=== PATIENT | male | born 1995 | race Caucasian/White ===

== ENCOUNTER 2016-10-01 16:04 | Inpatient (IN) | payer OTHER ==
[~2016-10-01] VITALS: Ht 195.6 cm; Wt 115.2 kg
[~2016-10-01 16:04] MED LIST: METFORMIN ER500 M1 PO; ZOLOFT100 MG PO
[2016-10-01 17:34] LABS: BASOPHIL % 0.1 % (0-2); PLATELET COUNT 363 x10^3mcL (130-400); RED CELL DISTRIBUTION WIDTH 14.2 % (11.5-14.5)
[2016-10-01 18:51] LABS: ALKALINE PHOSPHATASE 96 U/L (46-116); ALT/SGPT 215 U/L (16-63); AST/SGOT 109 U/L (15-37); BILIRUBIN TOTAL 0.6 mg/dL (0.20-1.00); CALCIUM 9.1 mg/dL (8.5-10.1); CARBON DIOXIDE 15.6 mmol/L (21-32); CHLORIDE SERUM 100 mmol/L (98-107); CREATININE SERUM 0.8 mg/dL (0.7-1.3); GFR1 > 60 mL/min; GLUCOSE SERUM 310 mg/dL (74-106); LIPASE 911 IU/L (73-393); MAGNESIUM 1.7 mg/dL (1.8-2.4); POTASSIUM SERUM 4.3 mmol/L (3.5-5.1); SODIUM SERUM 133 mmol/L (136-145); TOTAL PROTEIN, SERUM 8.1 g/dL (6.4-8.2)
[2016-10-01 19:18] LABS: AMYLASE 95 U/L (25-115); PHOSPHOROUS 4.4 mg/dL (2.5-4.9)
[2016-10-01 19:19] LABS: CHOLESTEROL 118 mg/dL (<200); CHOLESTEROL/HDL RATIO 5.9; TRIGLYCERIDES 643 mg/dL (<150)
[2016-10-01 19:20] LABS: HDL CHOLESTEROL 20 mg/dL (40-60)
[2016-10-01 19:42] LABS: FREE T4 1.13 ng/dL (0.76-1.46); FREE THYROXINE INDEX 3.9 ug/dL (1.4-4.5); T3 TOTAL 1.6 ng/mL; T4(THYROXINE) 11.6 ug/dL (4.7-13.3)
[2016-10-01 20:21] VITALS: BP 140/95
[2016-10-01 21:35] VITALS: BP 140/95
[2016-10-01] MEDS ORDERED: SIMVASTATIN10 M1 PO (22:22)
[2016-10-01] MEDS ORDERED: GOOD SENSE OMEP20 MG PO (22:22)
[2016-10-01] MEDS ORDERED: FENOFIBRATE MI200 MG PO (22:22)
[2016-10-01] MEDS ORDERED: BUPROPION HCL100 M1 PO (22:23)
[2016-10-01] MEDS ORDERED: OMEGA 3 FISH O1 EACH PO (22:26)
[2016-10-01 23:47] LABS: UA SPECIFIC GRAVITY 1.025 (1.005-1.035); microscopic required? YES; urine erythrocyte NEGATIVE (NEGATIVE)
[2016-10-02 00:11] LABS: AMPHETAMINE QUAL UR NONE DETECTED (NEG <=1000)
[2016-10-02 05:40] VITALS: BP 133/88
[2016-10-02 06:47] LABS: BASOPHIL % 0.3 % (0-2); PLATELET COUNT 331 x10^3mcL (130-400); RED CELL DISTRIBUTION WIDTH 14.9 % (11.5-14.5)
[2016-10-02 07:59] LABS: CALCIUM 8.6 mg/dL (8.5-10.1); CARBON DIOXIDE 19.6 mmol/L (21-32); CHLORIDE SERUM 102 mmol/L (98-107); CREATININE SERUM 0.6 mg/dL (0.7-1.3); GFR1 > 60 mL/min; GLUCOSE SERUM 246 mg/dL (74-106); LIPASE 609 IU/L (73-393); MAGNESIUM 1.9 mg/dL (1.8-2.4); POTASSIUM SERUM 3.9 mmol/L (3.5-5.1); SODIUM SERUM 137 mmol/L (136-145)
[2016-10-02 10:43] VITALS: BP 134/81
[2016-10-02 15:04] VITALS: BP 107/63
[2016-10-02 18:10] VITALS: BP 112/78
[2016-10-02 22:13] VITALS: BP 94/67
[2016-10-03 05:32] VITALS: BP 117/64
[2016-10-03 07:45] LABS: BASOPHIL % 0.4 % (0-2); PLATELET COUNT 261 x10^3mcL (130-400)
[2016-10-03 07:48] LABS: RED CELL DISTRIBUTION WIDTH 14.7 % (11.5-14.5)
[2016-10-03 07:53] LABS: CALCIUM 8.2 mg/dL (8.5-10.1); CHLORIDE SERUM 103 mmol/L (98-107); CREATININE SERUM 0.5 mg/dL (0.7-1.3); GFR1 > 60 mL/min; GLUCOSE SERUM 198 mg/dL (74-106); LIPASE 331 IU/L (73-393); POTASSIUM SERUM 3.4 mmol/L (3.5-5.1); SODIUM SERUM 137 mmol/L (136-145)
[2016-10-03 10:24] VITALS: BP 109/61
[2016-10-03] MEDS ORDERED: CONTOUR NEXT1 EACH MC (14:21)
[2016-10-03] MEDS ORDERED: MICROLET MC (14:22)
[2016-10-03 14:41] VITALS: BP 115/69
== END 2016-10-03 16:08 | disposition home or self-care (01) | DRG 282 ==
LOC: ED 16:04 → DU 18:34
PROVIDERS: Emergency Medicine; ADMIT Family Medicine
DX: K85.90 Acute pancreatitis without necrosis or infection, unspecified (principal); N17.0 Acute kidney failure with tubular necrosis; G93.41 Metabolic encephalopathy; D68.69 Other thrombophilia; E11.65 Type 2 diabetes mellitus with hyperglycemia; E83.42 Hypomagnesemia; K72.90 Hepatic failure, unspecified without coma; E87.1 Hypo-osmolality and hyponatremia; E78.5 Hyperlipidemia, unspecified; R74.0 Nonspecific elevation of levels of transaminase and lactic acid dehydrogenase [LDH]; I10 Essential (primary) hypertension; E66.9 Obesity, unspecified; Z68.30 Body mass index [BMI] 30.0-30.9, adult; Z79.84 Long term (current) use of oral hypoglycemic drugs; Z83.3 Family history of diabetes mellitus; Z80.9 Family history of malignant neoplasm, unspecified
CPT/HCPCS: 36600; 82962; 83880; 84439; J1815; J2270; J2405; J3010; J3475; J7030; Q0092

== ENCOUNTER 2017-03-05 17:53 | Inpatient (IN) | payer OTHER ==
[~2017-03-05] VITALS: Ht 198.1 cm; Wt 117.5 kg
[~2017-03-05 17:53] MED LIST changes: +BUPROPION HCL100 M1 PO; +CONTOUR NEXT1 EACH MC; +FENOFIBRATE MI200 MG PO; +GOOD SENSE OMEP20 MG PO; +MICROLET MC; +OMEGA 3 FISH O1 EACH PO; +SIMVASTATIN10 M1 PO
[2017-03-05 18:37] LABS: BASOPHIL % 0.5 % (0-2); PLATELET COUNT 380 x10^3mcL (130-400); RED CELL DISTRIBUTION WIDTH 13.9 % (11.5-14.5)
[2017-03-05 18:57] LABS: BILIRUBIN TOTAL 0.97 mg/dL (0.20-1.00); CHLORIDE SERUM 96 mmol/L (98-107); CREATININE SERUM 0.5 mg/dL (0.7-1.3); GFR1 > 60 mL/min; LIPASE 1106 IU/L (73-393); SODIUM SERUM 131 mmol/L (136-145)
[2017-03-05 19:27] LABS: ALBUMIN 3.3 g/dL (3.4-5.0)
[2017-03-05 20:21] VITALS: BP 142/97
[2017-03-05 20:22] VITALS: Ht 198.1 cm; Wt 117.5 kg
[2017-03-05 20:22] LABS: T3 TOTAL 1.25 ng/mL
[2017-03-05 20:43] LABS: FREE THYROXINE INDEX 3.3 ug/dL (1.4-4.5); T4(THYROXINE) 10.7 ug/dL (4.7-13.3)
[2017-03-05 20:47] LABS: CARBON DIOXIDE 17.4 mmol/L (21-32); GLUCOSE SERUM 264 mg/dL (74-106)
[2017-03-05 20:48] LABS: TOTAL PROTEIN, SERUM 7.9 g/dL (6.4-8.2)
[2017-03-05 20:49] LABS: ALT/SGPT 158 U/L (16-63); AST/SGOT 106 U/L (15-37)
[2017-03-05 20:50] LABS: ALKALINE PHOSPHATASE 93 U/L (46-116)
[2017-03-05 21:02] LABS: AMYLASE 108 U/L (25-115); MAGNESIUM 1.6 mg/dL (1.8-2.4); PHOSPHOROUS 3.8 mg/dL (2.5-4.9)
[2017-03-05 21:05] LABS: CHOLESTEROL 117 mg/dL (<200); CHOLESTEROL/HDL RATIO 5.3; HDL CHOLESTEROL 22 mg/dL (40-60); TRIGLYCERIDES 572 mg/dL (<150)
[2017-03-06 03:14] LABS: UA SPECIFIC GRAVITY >=1.030 (1.005-1.035); microscopic required? YES; urine erythrocyte NEGATIVE (NEGATIVE)
[2017-03-06 03:22] LABS: AMPHETAMINE QUAL UR NONE DETECTED (NEG <=1000)
[2017-03-06 03:35] LABS: BASOPHIL % 0.2 % (0-2); PLATELET COUNT 319 x10^3mcL (130-400); RED CELL DISTRIBUTION WIDTH 14.2 % (11.5-14.5)
[2017-03-06 03:45] LABS: CALCIUM 7.8 mg/dL (8.5-10.1); CARBON DIOXIDE 20.4 mmol/L (21-32); CHLORIDE SERUM 98 mmol/L (98-107); CREATININE SERUM 0.6 mg/dL (0.7-1.3); GFR1 > 60 mL/min; GLUCOSE SERUM 284 mg/dL (74-106); MAGNESIUM 1.7 mg/dL (1.8-2.4); PHOSPHOROUS 3.6 mg/dL (2.5-4.9); POTASSIUM SERUM 3.7 mmol/L (3.5-5.1); SODIUM SERUM 133 mmol/L (136-145)
[2017-03-06 04:56] VITALS: BP 104/77
[2017-03-06 07:19] LABS: CALCIUM 7.9 mg/dL (8.5-10.1); CARBON DIOXIDE 19.4 mmol/L (21-32); CHLORIDE SERUM 98 mmol/L (98-107); CREATININE SERUM 0.7 mg/dL (0.7-1.3); GFR1 > 60 mL/min; GLUCOSE SERUM 256 mg/dL (74-106); MAGNESIUM 2.3 mg/dL (1.8-2.4); PHOSPHOROUS 3.5 mg/dL (2.5-4.9); POTASSIUM SERUM 4.1 mmol/L (3.5-5.1); SODIUM SERUM 132 mmol/L (136-145)
[2017-03-06 11:35] VITALS: BP 98/49
[2017-03-06 14:30] VITALS: BP 109/55
[2017-03-06 17:37] VITALS: BP 113/57
[2017-03-06 21:32] VITALS: BP 104/56
[2017-03-07 04:47] VITALS: BP 107/67
[2017-03-07 08:00] VITALS: BP 121/79
[2017-03-07 08:09] LABS: BASOPHIL % 0.3 % (0-2); PLATELET COUNT 271 x10^3mcL (130-400); RED CELL DISTRIBUTION WIDTH 14.1 % (11.5-14.5)
[2017-03-07 08:14] LABS: CALCIUM 8.3 mg/dL (8.5-10.1); CARBON DIOXIDE 25.3 mmol/L (21-32); CHLORIDE SERUM 101 mmol/L (98-107); CREATININE SERUM 0.6 mg/dL (0.7-1.3); GFR1 > 60 mL/min; GLUCOSE SERUM 207 mg/dL (74-106); POTASSIUM SERUM 3.1 mmol/L (3.5-5.1); SODIUM SERUM 136 mmol/L (136-145)
[2017-03-07 09:30] VITALS: BP 113/68
[2017-03-07 13:00] VITALS: BP 124/69
[2017-03-07 15:53] VITALS: BP 124/69
[2017-03-07] MEDS ORDERED: PAN PO (16:33)
[2017-03-07] MEDS ORDERED: GLIPIZIDE ER5 M1 PO (16:36)
== END 2017-03-07 17:44 | disposition home or self-care (01) | DRG 282 ==
LOC: ED 17:53 → DU 19:26
PROVIDERS: Emergency Medicine; Family Medicine
DX: K85.90 Acute pancreatitis without necrosis or infection, unspecified (principal); N17.0 Acute kidney failure with tubular necrosis; E44.0 Moderate protein-calorie malnutrition; D68.69 Other thrombophilia; E11.65 Type 2 diabetes mellitus with hyperglycemia; E83.42 Hypomagnesemia; E02 Subclinical iodine-deficiency hypothyroidism; F11.10 Opioid abuse, uncomplicated; R74.0 Nonspecific elevation of levels of transaminase and lactic acid dehydrogenase [LDH]; K86.1 Other chronic pancreatitis; E87.6 Hypokalemia; I10 Essential (primary) hypertension; M94.0 Chondrocostal junction syndrome [Tietze]; E87.1 Hypo-osmolality and hyponatremia; E66.9 Obesity, unspecified; E78.5 Hyperlipidemia, unspecified; Z68.29 Body mass index [BMI] 29.0-29.9, adult; Z79.84 Long term (current) use of oral hypoglycemic drugs; Z90.89 Acquired absence of other organs; Z83.3 Family history of diabetes mellitus; Z80.9 Family history of malignant neoplasm, unspecified
CPT/HCPCS: 36600; 82962; 83880; 84439; G0480; J1644; J1815; J1885; J2270; J2405; J3010; J3475; J3490; J7030; J7620; Q0092; Q0163; Q9967

== ENCOUNTER 2017-05-19 22:54 | Emergency (ER) | payer OTHER ==
[~2017-05-19] VITALS: Ht 195.6 cm; Wt 119.7 kg
[~2017-05-19 22:54] MED LIST changes: +GLIPIZIDE ER5 M1 PO; +PAN PO
[2017-05-19 23:04] VITALS: Ht 195.6 cm; Wt 119.7 kg
[2017-05-20 02:32] VITALS: BP 143/87
== END 2017-05-20 02:32 | disposition home or self-care (01) ==
LOC: ED 22:54
DX: S46.911A Strain of unspecified muscle, fascia and tendon at shoulder and upper arm level, right arm, initial encounter (principal); S09.8XXA Other specified injuries of head, initial encounter; E11.9 Type 2 diabetes mellitus without complications; W19.XXXA Unspecified fall, initial encounter; Y93.89 Activity, other specified; Y92.89 Other specified places as the place of occurrence of the external cause; Y99.8 Other external cause status
CPT/HCPCS: J1885; Q0092

== ENCOUNTER 2017-10-07 19:29 | Inpatient (IN) | payer OTHER ==
[~2017-10-07] VITALS: Ht 198.1 cm; Wt 118.6 kg
[2017-10-07 19:31] VITALS: Ht 198.1 cm; Wt 118.6 kg
[2017-10-07 21:22] LABS: BASOPHIL % 0.5 % (0-2); PLATELET COUNT 313 x10^3mcL (130-400); RED CELL DISTRIBUTION WIDTH 14.4 % (11.5-14.5)
[2017-10-07 21:46] LABS: CALCIUM 8.8 mg/dL (8.5-10.1); CHLORIDE SERUM 101 mmol/L (98-107); CREATININE SERUM 0.7 mg/dL (0.7-1.3); GFR1 > 60 mL/min; GLUCOSE SERUM 266 mg/dL (74-106); SODIUM SERUM 138 mmol/L (136-145)
[2017-10-07 21:50] LABS: ALBUMIN 3.4 g/dL (3.4-5.0); ALKALINE PHOSPHATASE 107 U/L (46-116); ALT/SGPT 137 U/L (16-63); AST/SGOT 59 U/L (15-37); BILIRUBIN TOTAL 0.39 mg/dL (0.20-1.00); LIPASE 967 IU/L (73-393); TOTAL PROTEIN, SERUM 7.1 g/dL (6.4-8.2)
[2017-10-07 22:12] LABS: UA SPECIFIC GRAVITY >=1.030 (1.005-1.035); microscopic required? YES; urine erythrocyte NEGATIVE (NEGATIVE)
[2017-10-07 23:13] VITALS: BP 149/95
[2017-10-08 02:18] LABS: MAGNESIUM 1.5 mg/dL (1.8-2.4); PHOSPHOROUS 3.6 mg/dL (2.5-4.9)
[2017-10-08] MEDS ORDERED: XAN1 PO (03:56)
[2017-10-08] MEDS ORDERED: ZOLOFT100 MG PO (03:57)
[2017-10-08 04:33] LABS: CALCIUM 7.1 mg/dL (8.5-10.1); CARBON DIOXIDE 12.2 mmol/L (21-32); CHLORIDE SERUM 101 mmol/L (98-107); CREATININE SERUM 0.6 mg/dL (0.7-1.3); GFR1 > 60 mL/min; MAGNESIUM 1.5 mg/dL (1.8-2.4); SODIUM SERUM 137 mmol/L (136-145)
[2017-10-08 04:34] LABS: GLUCOSE SERUM 323 mg/dL (74-106)
[2017-10-08 04:45] LABS: T3 TOTAL 1.09 ng/mL
[2017-10-08 04:50] LABS: FREE T4 0.86 ng/dL (0.76-1.46); T4(THYROXINE) 8.9 ug/dL (4.7-13.3)
[2017-10-08 04:54] LABS: BASOPHIL % 0.1 % (0-2); PLATELET COUNT 364 x10^3mcL (130-400); RED CELL DISTRIBUTION WIDTH 13.9 % (11.5-14.5)
[2017-10-08 04:56] LABS: MAGNESIUM 1.5 mg/dL (1.8-2.4); PHOSPHOROUS 3.3 mg/dL (2.5-4.9)
[2017-10-08 05:02] VITALS: BP 145/94
[2017-10-08 05:05] LABS: AMYLASE 125 U/L (25-115); CHOLESTEROL 240 mg/dL (<200); CHOLESTEROL/HDL RATIO 10.4; HDL CHOLESTEROL 23 mg/dL (40-60); TRIGLYCERIDES 2245 mg/dL (<150)
[2017-10-08 10:02] VITALS: BP 129/83
[2017-10-08 10:31] LABS: AMPHETAMINE QUAL UR NONE DETECTED (See below)
[2017-10-08 16:21] VITALS: BP 123/82
[2017-10-08 20:43] VITALS: BP 133/82
[2017-10-09 04:44] VITALS: BP 131/86
[2017-10-09 06:02] LABS: BASOPHIL % 0.2 % (0-2); PLATELET COUNT 305 x10^3mcL (130-400); RED CELL DISTRIBUTION WIDTH 14.4 % (11.5-14.5)
[2017-10-09 06:20] LABS: CALCIUM 8.1 mg/dL (8.5-10.1); CARBON DIOXIDE 22.9 mmol/L (21-32); CHLORIDE SERUM 101 mmol/L (98-107); CREATININE SERUM 0.5 mg/dL (0.7-1.3); GFR1 > 60 mL/min; GLUCOSE SERUM 206 mg/dL (74-106); LIPASE 731 IU/L (73-393); MAGNESIUM 1.9 mg/dL (1.8-2.4); PHOSPHOROUS 2.7 mg/dL (2.5-4.9); POTASSIUM SERUM 3.7 mmol/L (3.5-5.1); SODIUM SERUM 136 mmol/L (136-145)
[2017-10-09 08:28] VITALS: BP 134/89
[2017-10-09 12:13] VITALS: BP 134/89
== END 2017-10-09 13:00 | disposition home or self-care (01) | DRG 282 ==
LOC: ED 19:29 → MU 22:11
PROVIDERS: Emergency Medicine; Family Medicine; Internal Medicine
DX: K85.20 Alcohol induced acute pancreatitis without necrosis or infection (principal); N17.0 Acute kidney failure with tubular necrosis; R65.11 Systemic inflammatory response syndrome (SIRS) of non-infectious origin with acute organ dysfunction; D68.69 Other thrombophilia; E83.42 Hypomagnesemia; E11.65 Type 2 diabetes mellitus with hyperglycemia; K70.0 Alcoholic fatty liver; K86.0 Alcohol-induced chronic pancreatitis; R80.9 Proteinuria, unspecified; F12.90 Cannabis use, unspecified, uncomplicated; M19.90 Unspecified osteoarthritis, unspecified site; E78.1 Pure hyperglyceridemia; Z90.89 Acquired absence of other organs; Z79.84 Long term (current) use of oral hypoglycemic drugs; Z83.3 Family history of diabetes mellitus; Z80.9 Family history of malignant neoplasm, unspecified; Z56.0 Unemployment, unspecified; Z72.89 Other problems related to lifestyle
CPT/HCPCS: 83880; 84439; G0480; J1885; J2270; J2405; J3010; J3475; J7030; Q0092; Q0162

== ENCOUNTER 2017-12-27 16:35 | Inpatient (IN) | payer OTHER ==
[~2017-12-27] VITALS: Ht 170.2 cm; Wt 117.9 kg
[~2017-12-27 16:35] MED LIST changes: +XAN1 PO
[2017-12-27 16:48] VITALS: Ht 170.2 cm; Wt 117.9 kg
[2017-12-27 18:12] LABS: BILIRUBIN TOTAL 1.33 mg/dL (0.20-1.00); CREATININE SERUM 0.6 mg/dL (0.7-1.3); GFR1 > 60 mL/min
[2017-12-27 18:29] LABS: RED CELL DISTRIBUTION WIDTH 14.4 % (11.5-14.5)
[2017-12-27 18:31] LABS: PLATELET COUNT 466 x10^3mcL (130-400)
[2017-12-27 18:43] LABS: ALBUMIN 3.5 g/dL (3.4-5.0); ALKALINE PHOSPHATASE 105 U/L (46-116); ALT/SGPT 90 U/L (16-63); AST/SGOT 41 U/L (15-37); CALCIUM 8.7 mg/dL (8.5-10.1); CARBON DIOXIDE 23.3 mmol/L (21-32); CHLORIDE SERUM 102 mmol/L (98-107); GLUCOSE SERUM 272 mg/dL (74-106); LIPASE 1216 IU/L (73-393); SODIUM SERUM 138 mmol/L (136-145); TOTAL PROTEIN, SERUM 7.3 g/dL (6.4-8.2)
[2017-12-27 18:45] LABS: POTASSIUM SERUM 4.4 mmol/L (3.5-5.1)
[2017-12-27 19:40] LABS: UA SPECIFIC GRAVITY >=1.030 (1.005-1.035); microscopic required? YES; urine erythrocyte TRACE (NEGATIVE)
[2017-12-27 19:55] LABS: AMPHETAMINE QUAL UR NONE DETECTED (See below)
[2017-12-27 20:41] VITALS: BP 149/96
[2017-12-27 21:11] LABS: T3 TOTAL 1.44 ng/mL
[2017-12-27 21:15] LABS: AMYLASE 112 U/L (25-115); PHOSPHOROUS 3.2 mg/dL (2.5-4.9)
[2017-12-27 21:22] LABS: MAGNESIUM 1.5 mg/dL (1.8-2.4)
[2017-12-27 21:26] LABS: FREE T4 0.89 ng/dL (0.76-1.46); FREE THYROXINE INDEX 2.7 ug/dL (1.4-4.5); T4(THYROXINE) 9.5 ug/dL (4.7-13.3)
[2017-12-27 21:50] LABS: CHOLESTEROL 370 mg/dL (<200); CHOLESTEROL/HDL RATIO 13.7; HDL CHOLESTEROL 27 mg/dL (40-60); TRIGLYCERIDES 4125 mg/dL (<150)
[2017-12-27 21:53] VITALS: BP 147/102
[2017-12-27 22:12] VITALS: BP 142/100
[2017-12-28 05:46] VITALS: BP 114/63
[2017-12-28 07:32] VITALS: BP 105/70
[2017-12-28 07:54] LABS: BASOPHIL % 0.1 % (0-2); PLATELET COUNT 377 x10^3mcL (130-400); RED CELL DISTRIBUTION WIDTH 14.1 % (11.5-14.5)
[2017-12-28 07:56] LABS: CREATININE SERUM 0.6 mg/dL (0.7-1.3); GFR1 > 60 mL/min
[2017-12-28 09:04] LABS: CALCIUM 7.2 mg/dL (8.5-10.1); CARBON DIOXIDE 16.4 mmol/L (21-32); CHLORIDE SERUM 102 mmol/L (98-107); GLUCOSE SERUM 248 mg/dL (74-106); POTASSIUM SERUM 3.7 mmol/L (3.5-5.1); SODIUM SERUM 137 mmol/L (136-145)
[2017-12-28 11:01] VITALS: BP 111/75
[2017-12-28 13:07] LABS: BAND NEUTROPHIL 20 % (0-10); MONOCYTE 4 % (0-7); SEGMENTED NEUTROPHILS 65 % (37-75); rbc morphology (normal/abnorm) NORMAL (NORMAL)
[2017-12-28 13:08] LABS: PLATELET MORPHOLOGY PLATELETS NORMAL
[2017-12-28 17:03] VITALS: BP 122/80
[2017-12-28 17:55] LABS: BILIRUBIN TOTAL 0.51 mg/dL (0.20-1.00); TOTAL PROTEIN, SERUM 6.7 g/dL (6.4-8.2)
[2017-12-28 17:57] LABS: ALBUMIN 2.8 g/dL (3.4-5.0)
[2017-12-28 18:10] LABS: BILIRUBIN DIRECT 0.04 mg/dL (0.0-0.2)
[2017-12-28 20:09] VITALS: BP 128/77
[2017-12-29 05:27] VITALS: BP 118/72
[2017-12-29 06:59] LABS: BASOPHIL % 0.2 % (0-2); PLATELET COUNT 355 x10^3mcL (130-400); RED CELL DISTRIBUTION WIDTH 14.7 % (11.5-14.5)
[2017-12-29 07:28] LABS: ALKALINE PHOSPHATASE 58 U/L (46-116); ALT/SGPT 35 U/L (16-63); AST/SGOT 13 U/L (15-37); BILIRUBIN DIRECT 0.18 mg/dL (0.0-0.2); BILIRUBIN TOTAL 0.72 mg/dL (0.20-1.00); CALCIUM 7.7 mg/dL (8.5-10.1); CARBON DIOXIDE 27.2 mmol/L (21-32); CHLORIDE SERUM 100 mmol/L (98-107); CREATININE SERUM 0.6 mg/dL (0.7-1.3); GFR1 > 60 mL/min; GLUCOSE SERUM 198 mg/dL (74-106); LIPASE 806 IU/L (73-393); MAGNESIUM 1.7 mg/dL (1.8-2.4); SODIUM SERUM 136 mmol/L (136-145); TOTAL PROTEIN, SERUM 6.6 g/dL (6.4-8.2)
[2017-12-29 07:32] LABS: ALBUMIN 2.5 g/dL (3.4-5.0)
[2017-12-29 07:35] LABS: POTASSIUM SERUM 2.9 mmol/L (3.5-5.1)
[2017-12-29 09:31] VITALS: BP 121/67
[2017-12-29 12:46] VITALS: BP 124/79
[2017-12-29 13:07] VITALS: BP 124/79
== END 2017-12-29 14:50 | disposition home or self-care (01) | DRG 282 ==
LOC: ED 16:35 → MU 19:44 → DU 19:44
PROVIDERS: Emergency Medicine; Internal Medicine
DX: K85.90 Acute pancreatitis without necrosis or infection, unspecified (principal); N17.0 Acute kidney failure with tubular necrosis; E11.65 Type 2 diabetes mellitus with hyperglycemia; R65.10 Systemic inflammatory response syndrome (SIRS) of non-infectious origin without acute organ dysfunction; E66.01 Morbid (severe) obesity due to excess calories; E87.2 Acidosis; K21.9 Gastro-esophageal reflux disease without esophagitis; K86.1 Other chronic pancreatitis; K86.81 Exocrine pancreatic insufficiency; F41.8 Other specified anxiety disorders; E87.6 Hypokalemia; E78.1 Pure hyperglyceridemia; F32.9 Major depressive disorder, single episode, unspecified; F41.9 Anxiety disorder, unspecified; E80.6 Other disorders of bilirubin metabolism; K76.0 Fatty (change of) liver, not elsewhere classified; Z68.41 Body mass index [BMI] 40.0-44.9, adult; Z79.84 Long term (current) use of oral hypoglycemic drugs; Z79.899 Other long term (current) drug therapy; Z83.3 Family history of diabetes mellitus
CPT/HCPCS: 82962; 83880; 84439; J1815; J2270; J2405; J2543; J3480; J3490; J7030; Q0092; Q9967

== ENCOUNTER 2018-02-22 18:42 | Inpatient (IN) | payer OTHER ==
[~2018-02-22] VITALS: Ht 195.6 cm; Wt 116.6 kg
[2018-02-22 18:47] VITALS: Ht 195.6 cm; Wt 116.6 kg
[2018-02-22 20:31] LABS: PLATELET COUNT 399 x10^3mcL (130-400)
[2018-02-22 20:44] LABS: GFR1 > 60 mL/min
[2018-02-22 21:10] LABS: CALCIUM 8.7 mg/dL (8.5-10.1); CARBON DIOXIDE 16.2 mmol/L (21-32); CHLORIDE SERUM 98 mmol/L (98-107); CREATININE SERUM 0.7 mg/dL (0.7-1.3); GLUCOSE SERUM 266 mg/dL (74-106); SODIUM SERUM 133 mmol/L (136-145)
[2018-02-22 21:14] LABS: ALBUMIN 3.5 g/dL (3.4-5.0); ALKALINE PHOSPHATASE 91 U/L (46-116); ALT/SGPT 108 U/L (16-63); AST/SGOT 52 U/L (15-37); BILIRUBIN TOTAL 0.4 mg/dL (0.20-1.00); TOTAL PROTEIN, SERUM 7.4 g/dL (6.4-8.2)
[2018-02-22 21:23] LABS: POTASSIUM SERUM 3.6 mmol/L (3.5-5.1)
[2018-02-22 21:32] LABS: BAND NEUTROPHIL 3 % (0-10); BASOPHIL 0 % (0-2); MONOCYTE 6 % (0-7); SEGMENTED NEUTROPHILS 72 % (37-75); rbc morphology (normal/abnorm) ABNORMAL (NORMAL)
[2018-02-22 21:33] LABS: PLATELET MORPHOLOGY PLATELETS NORMAL
[2018-02-22 22:37] VITALS: BP 159/119
[2018-02-22 23:22] VITALS: BP 142/91
[2018-02-23 02:08] LABS: MAGNESIUM 1.5 mg/dL (1.8-2.4); PHOSPHOROUS 3.4 mg/dL (2.5-4.9)
[2018-02-23 02:10] LABS: FREE T4 0.9 ng/dL (0.76-1.46); FREE THYROXINE INDEX 3.3 ug/dL (1.4-4.5)
[2018-02-23 02:27] LABS: T3 TOTAL 1.06 ng/mL
[2018-02-23 02:44] LABS: CHOLESTEROL 240 mg/dL (<200); CHOLESTEROL/HDL RATIO 9.6; HDL CHOLESTEROL 25 mg/dL (40-60); TRIGLYCERIDES 2545 mg/dL (<150)
[2018-02-23 06:06] VITALS: BP 121/72
[2018-02-23 06:53] LABS: CALCIUM 7.2 mg/dL (8.5-10.1); CARBON DIOXIDE 13.2 mmol/L (21-32); CHLORIDE SERUM 97 mmol/L (98-107); CREATININE SERUM 0.7 mg/dL (0.7-1.3); GFR1 > 60 mL/min; GLUCOSE SERUM 292 mg/dL (74-106); MAGNESIUM 1.3 mg/dL (1.8-2.4); POTASSIUM SERUM 3.6 mmol/L (3.5-5.1); SODIUM SERUM 131 mmol/L (136-145)
[2018-02-23 07:02] LABS: BASOPHIL % 0.1 % (0-2); PLATELET COUNT 329 x10^3mcL (130-400); RED CELL DISTRIBUTION WIDTH 14.1 % (11.5-14.5)
[2018-02-23 08:28] LABS: LIPASE 2835 IU/L (73-393)
[2018-02-23 08:55] VITALS: BP 117/78
[2018-02-23 12:19] LABS: UA SPECIFIC GRAVITY >=1.030 (1.005-1.035); microscopic required? YES; urine erythrocyte NEGATIVE (NEGATIVE)
[2018-02-23 12:30] LABS: AMPHETAMINE QUAL UR NONE DETECTED (See below)
[2018-02-23 17:41] VITALS: BP 136/81
[2018-02-24 02:04] VITALS: BP 120/72
[2018-02-24 06:10] VITALS: BP 109/68
[2018-02-24 06:53] LABS: CARBON DIOXIDE 26.1 mmol/L (21-32); CHLORIDE SERUM 100 mmol/L (98-107); CREATININE SERUM 0.7 mg/dL (0.7-1.3); GFR1 > 60 mL/min; GLUCOSE SERUM 196 mg/dL (74-106); LIPASE 751 IU/L (73-393); MAGNESIUM 1.9 mg/dL (1.8-2.4); PHOSPHOROUS 2.3 mg/dL (2.5-4.9); POTASSIUM SERUM 3.5 mmol/L (3.5-5.1); SODIUM SERUM 133 mmol/L (136-145)
[2018-02-24 09:03] VITALS: BP 116/67
[2018-02-24 10:43] LABS: BASOPHIL % 0.2 % (0-2); PLATELET COUNT 296 x10^3mcL (130-400); RED CELL DISTRIBUTION WIDTH 14.6 % (11.5-14.5)
[2018-02-24 16:41] VITALS: BP 106/61
[2018-02-24 21:34] VITALS: BP 121/68
[2018-02-25 05:12] VITALS: BP 130/79
[2018-02-25 06:34] LABS: BASOPHIL % 0.2 % (0-2); PLATELET COUNT 267 x10^3mcL (130-400)
[2018-02-25 06:59] LABS: CALCIUM 7.6 mg/dL (8.5-10.1); CARBON DIOXIDE 23.5 mmol/L (21-32); CHLORIDE SERUM 104 mmol/L (98-107); CREATININE SERUM 0.5 mg/dL (0.7-1.3); GFR1 > 60 mL/min; GLUCOSE SERUM 193 mg/dL (74-106); LIPASE 496 IU/L (73-393); PHOSPHOROUS 1.8 mg/dL (2.5-4.9); POTASSIUM SERUM 3.3 mmol/L (3.5-5.1); SODIUM SERUM 138 mmol/L (136-145)
[2018-02-25 07:19] LABS: RED CELL DISTRIBUTION WIDTH 14.9 % (11.5-14.5)
[2018-02-25 10:01] VITALS: BP 124/80
[2018-02-25 11:21] VITALS: BP 124/80
== END 2018-02-25 12:15 | disposition home or self-care (01) | DRG 282 ==
LOC: ED 18:42 → MU 22:06
PROVIDERS: Emergency Medicine; ADMIT Internal Medicine
DX: K85.90 Acute pancreatitis without necrosis or infection, unspecified (principal); K65.9 Peritonitis, unspecified; E11.65 Type 2 diabetes mellitus with hyperglycemia; E87.1 Hypo-osmolality and hyponatremia; R74.0 Nonspecific elevation of levels of transaminase and lactic acid dehydrogenase [LDH]; E66.9 Obesity, unspecified; K86.1 Other chronic pancreatitis; E78.1 Pure hyperglyceridemia; F32.9 Major depressive disorder, single episode, unspecified; Z68.30 Body mass index [BMI] 30.0-30.9, adult; Z79.84 Long term (current) use of oral hypoglycemic drugs; Z90.89 Acquired absence of other organs; Z83.3 Family history of diabetes mellitus; Z80.9 Family history of malignant neoplasm, unspecified
CPT/HCPCS: 82962; 83880; 84439; 85378; 87804; J1885; J2270; J2405; J2543; J3010; J3475; J7030; Q0092; Q9966; Q9967

== ENCOUNTER 2019-02-06 13:35 | Inpatient (IN) | payer OTHER ==
[~2019-02-06] VITALS: Ht 195.6 cm; Wt 88.5 kg
--- NOTE | 2019-02-06 14:56 | NUR ---
EKG IN PROGRESS.
--- NOTE | 2019-02-06 15:03 | NUR ---
PLACED IN BED 5 FOR EVAL.
--- NOTE | 2019-02-06 15:30 | NUR ---
PT TAKEN TO ROOM 5 VIA W/C A/AX4, PT HERE FOR C/ WITH FLU LIKE SYMPTOMS SINCE 02/03/19. PT PLACED ON METAL MODEL BUILDER, IV STARTED IN LEFT HAND FLUSHED WITH 10CC OF N/S IV PATENT. PT INFORMS ME THAT HE HAS BEEN VOMITING EVER SINCE 02/03/19. PT INFORMS ME THAT HE HAS HX PANCREATITIS. I COLLECTED LABS. C/L IN REACH SIDERAILS UP FOR SAFETY
[2019-02-06 15:50] LABS: BASOPHIL % 0.9 % (0-2); RED CELL DISTRIBUTION WIDTH 14.1 % (11.5-14.5)
[2019-02-06 15:53] LABS: PLATELET COUNT 424 x10^3mcL (130-400)
[2019-02-06 16:57] LABS: ALKALINE PHOSPHATASE 84 U/L (46-116); AST/SGOT 3 U/L (15-37); BILIRUBIN TOTAL 0.9 mg/dL (0.20-1.00); CALCIUM 7.8 mg/dL (8.5-10.1); CARBON DIOXIDE 11.7 mmol/L (21-32); CHLORIDE SERUM 91 mmol/L (98-107); CREATININE SERUM 0.5 mg/dL (0.7-1.3); GFR1 > 60 mL/min; GLUCOSE SERUM 342 mg/dL (74-106); POTASSIUM SERUM 4.1 mmol/L (3.5-5.1); SODIUM SERUM 128 mmol/L (136-145)
[2019-02-06 17:32] LABS: ALBUMIN 3.1 g/dL (3.4-5.0)
--- NOTE | 2019-02-06 18:26 | NUR ---
PATIENT MEDICATED PER MD ORDERS- SEE EMR
--- NOTE | 2019-02-06 18:29 | NUR ---
MEDICATION RECONCILIATION AND BELONGINGS CHECKLIST COMPLETED.
[2019-02-06 18:43] LABS: ALT/SGPT 140 U/L (16-63)
[2019-02-06 18:44] LABS: LIPASE 1963 IU/L (73-393)
--- NOTE | 2019-02-06 19:31 | NUR ---
PROVIDED REPORT TO TAMIKO MONTERO FOR CONTINUED CARE OF PATIENT.
--- NOTE | 2019-02-06 19:36 | NUR ---
REPORT PROVIDED TO TAMIKO PÉREZ FOR CONTINUED CARE OF PATIENT.
[2019-02-06 19:37] LABS: T3 TOTAL 0.93 ng/mL
--- NOTE | 2019-02-06 19:52 | NUR ---
RECEIVED PT FROM ED VIA [facility], CAME IN DUE TO ABDOMINAL PAIN. AAOX4. DENIES HEADACHE/DIZZINESS. ABLE TO FOLLOW COMMANDS. NO SOB NOTED, STATED THAT HE HAS PRODUCTIVE COUGH, ABLE TO EXPECTORATE WHITE PHLEGM. DENIES CHEST PAIN/PRESSURE. C/O 9/10 EPIGASTRIC PAIN DESCRIBED PRESSURE AND MILD NAUSEA. ABDOMEN IS SOFT. VOIDS. IV SITE PATENT AND INTACT. SIDE RAILS UPX2. CALL LIGHT ON REACH. ENDORSED TO PRIMARY NURSE KYLAH FOR CONTINUITY OF CARE
[2019-02-06 20:05] VITALS: BP 144/95
[2019-02-06 20:07] VITALS: Ht 195.6 cm; Wt 88.5 kg
[2019-02-06 20:17] LABS: UA SPECIFIC GRAVITY >=1.030 (1.005-1.035); microscopic required? YES; urine erythrocyte 1+ (NEGATIVE)
[2019-02-06 20:17] LABS: MAGNESIUM 1.9 mg/dL (1.8-2.4); PHOSPHOROUS 3.5 mg/dL (2.5-4.9)
[2019-02-06 20:19] LABS: FREE T4 0.87 ng/dL (0.76-1.46); FREE THYROXINE INDEX 3.3 ug/dL (1.4-4.5); T4(THYROXINE) 9.3 ug/dL (4.7-13.3)
--- NOTE | 2019-02-06 20:30 | NUR ---
C/O SEVERE BACK PAIN. MORPHIME 2MG IVP PRN MEDICATION. STARTED ON IVF NS AT 150,ML/HR ORDERED. INT=]STRUCTED PT TO BE NPO TILL FURHTER NOICE, PT COOPERATIVE WITH PLAN OF CARE.
[2019-02-06 20:34] LABS: AMPHETAMINE QUAL UR NONE DETECTED (See below)
[2019-02-06 21:30] LABS: CHOLESTEROL 268 mg/dL (<200); CHOLESTEROL/HDL RATIO 12.2; HDL CHOLESTEROL 22 mg/dL (40-60); TRIGLYCERIDES 2371 mg/dL (<150)
--- NOTE | 2019-02-06 23:32 | NUR ---
BLOOD SUGAR TAKEN 169MG/DL, NO INSULIN COVERAGE GIVEN PT REFUSED, PT IS NPO EPLAINED THE RISKS/BENEFITS. WILL CONTINUE TO MONITOR
--- NOTE | 2019-02-07 00:36 | NUR ---
RECEIVED PT FROM KYLAH. PT IN NO ACUTE DISTRESS. CALL LIGHT WITHIN REACH. BED IN LOWEST POSITION. WILL CONTINUE TO MONITOR.
--- NOTE | 2019-02-07 03:45 | NUR ---
PT RESTING IN BED. RR EVEN AND UNLABORED. IN NO ACUTE DISTRESS. CALL LIGHT WITHIN REACH. WILL CONTINUE TO MONITOR.
[2019-02-07 05:02] VITALS: BP 139/88
--- NOTE | 2019-02-07 07:30 | NUR ---
RECEIVED PT IN NO ACUTE DISTRESS. SLEEPING BUT EASILY AROUSABLE. NO PAIN NOTED AT THIS TIME. PT NPO FOR US ABDOMEN. IVF INFUSING, NO REDNESS OR SWELLING TO IV SITE. BED IN LOW POSITION, CALL LIGHT WITHIN REACH. WILL CONTINUE TO MONITOR.
[2019-02-07 07:33] LABS: CALCIUM 7.9 mg/dL (8.5-10.1); CHLORIDE SERUM 99 mmol/L (98-107); CREATININE SERUM 0.7 mg/dL (0.7-1.3); GFR1 > 60 mL/min; GLUCOSE SERUM 220 mg/dL (74-106); LIPASE 1165 IU/L (73-393); POTASSIUM SERUM 4.2 mmol/L (3.5-5.1); SODIUM SERUM 131 mmol/L (136-145)
[2019-02-07 08:38] LABS: BASOPHIL % 0.4 % (0-2); PLATELET COUNT 322 x10^3mcL (130-400)
[2019-02-07 08:39] LABS: RED CELL DISTRIBUTION WIDTH 14.7 % (11.5-14.5)
[2019-02-07 08:40] VITALS: BP 144/70
[2019-02-07 11:51] VITALS: BP 141/93
--- NOTE | 2019-02-07 13:25 | NUR ---
PT IN NO ACUTE DISTRESS. SLEEPING BUT EASILY AROUSABLE. BREATHING EVEN AND UNLABORED ON RA. NO PAIN NOTED AT THIS TIME. IVF INFUSING, NO REDNESS OR SWELLING NOTED. NPO EXCEPT MEDS. CALL LIGHT WITHIN REACH. WILL CONTINUE TO MONITOR.
--- NOTE | 2019-02-07 14:51 | NUR ---
PT AA/OX4 LAYING IN BED. NO S/S OF ACUTE DISTRESS. C/O INTERMITTENT PAIN TO MIDEPIGASTRIC/BACK PAIN. RATES 7/10. ACHING. GIVEN IV PAIN MED, SEE MAR. IV WNL TO LAC, PATENT AND FLUSHES WELL. IVF FLOWING. VS STABLE. NO SOB ON ROOM AIR. O2 SAT 97% ON ROOM AIR. RR EVEN/UNLABORED. CHEST EXPANSION SYMMETRICAL. NO REDNESS, NO SWELLING, NO INFILTRATION. CALM/COOPERATIVE. CONGESTED COUGH NOTED. BED IN LOW POSITION. CALL LIGHT WITHIN REACH. WILL ENDORSE TO PRIMARY TAMIKO CARIAS.
[2019-02-07 16:05] VITALS: BP 134/85
[2019-02-07 16:07] VITALS: BP 132/74
--- NOTE | 2019-02-07 18:43 | NUR ---
PT IN NO ACUTE DISTRESS. RESTING IN BED. SLEEPING BUT EASILY AROUSABLE. RESP EVEN AND UNLABORED ON RA. IVF INFUSING, NO REDNESS OR SWELLING NOTED. NPO EXCEPT MEDS. BED IN LOW POSITION, CALL LIGHT WITHIN REACH. WILL ENDORSE TO ONCOMING SHIFT.
--- NOTE | 2019-02-07 19:40 | NUR ---
RECEIVED REPORT FROM ARETHA MORRISON. PT IS AAOX4 AND DENIES HEADACHE OR DIZZINESS AT THIS TIME. PT IS MED-SURG AND DENIES CHEST PAIN OR PRESSURE. PT PULSES PALPABLE AND NO EDEMA PRESENT. PT LUNG SOUNDS CTA ON RA AND BREATHING EVEN AND UNLABORED. PT DENIES SOB OR RESPIRATORY DISTRESS AT THIS TIME. PT ABD SOFT AND ROUND. PT BOWEL SOUNDS ACTIVE X4. PT DENIES N/V/D AT THIS TIME. PT C/O ABD PAIN /. PT VOIDS FREELY WITH BRP. PT AMBULATORY. PT SKIN WARM, DRY, INTACT. PT IV PATENT AND INTACT. CALL LIGHT WITHIN REACH. BED IN LOWEST POSITION. SIDE RAILS X2 UP. WILL CONTINUE TO MONITOR.
[2019-02-07 20:52] VITALS: BP 146/93
--- NOTE | 2019-02-08 01:50 | NUR ---
PT SLEEPING. BREATHING EVEN AND UNLABORED. NO ACUTE DISTRESS NOTED. CALL LIGHT WITHIN REACH. BED IN LOWEST POSITION. SIDE RAILS X2 UP. IVF INFUSING WELL. WILL CONTINUE TO MONITOR.
[2019-02-08 05:48] VITALS: BP 136/91
--- NOTE | 2019-02-08 06:12 | NUR ---
PT SLEPT INTERMITTENTLY FOR MOST OF THE NIGHT. NO ACUTE DISTRESS NOTED DURING THE SHIFT. PT COMPLIED WITH NURSING CARE THROUGHOUT THE SHIFT. COMFORT AND SAFETY MEASURES MAINTAINED. ALL QUESTIONS AND CONCERNS ADDRESSED. WILL ENDORSE CARE TO DAY SHIFT NURSE. WILL CONTINUE TO MONITOR.
[2019-02-08 06:42] LABS: PLATELET COUNT 318 x10^3mcL (130-400); RED CELL DISTRIBUTION WIDTH 14.1 % (11.5-14.5)
[2019-02-08 06:58] LABS: CALCIUM 8.1 mg/dL (8.5-10.1); CARBON DIOXIDE 17.2 mmol/L (21-32); CHLORIDE SERUM 102 mmol/L (98-107); CREATININE SERUM 0.6 mg/dL (0.7-1.3); GFR1 > 60 mL/min; GLUCOSE SERUM 183 mg/dL (74-106); LIPASE 486 IU/L (73-393); POTASSIUM SERUM 3.6 mmol/L (3.5-5.1); SODIUM SERUM 136 mmol/L (136-145)
[2019-02-08 07:00] LABS: BASOPHIL % 0 % (0-2)
--- NOTE | 2019-02-08 07:00 | NUR ---
RECEIVED REPORT FROM LISA MORRISON AT BEDSIDE, PT RESTING IN BED IN NO ACUTE DISTRESS
--- NOTE | 2019-02-08 07:19 | NUR ---
ENDORSED CARE TO THI RN. ALL QUESTIONS AND CONCERNS ADDRESSED.
--- NOTE | 2019-02-08 07:30 | NUR ---
PT RESTING IN BED, IN NO ACUTE DISTRESS, RESP E/U, RA, LUNGS CTA, DENIED PAIN/TURNER/DISCOMFORT, DENIED CP/PALPITATION, MEDSURG, ABD FLAT AND NON-TENDER TO TOUCH, BS ACTIVE X 4, PALP PULSES, CAP REFILL < 2S, AMBULATORY, NPO AT THIS ITME, CONTINENT, SEE SKIN ASSESSMENT, SKIN C/D/W, IV PATENT AND INFUSING WELL, DRESSING CDI, ALL NEEDS ADDRESSED, SAFETY PROTOCOL FOLLOWED, CONTINUE TO MONTIOR
[2019-02-08 08:37] VITALS: BP 135/87
--- NOTE | 2019-02-08 08:54 | NUR ---
AM MEDs GIVEN PER MD ORDER VIA EMAR, TOLERATED WELL, NO ASE NOTED AT THIS TIME, EDUCATED PT R/T MEDs, ASE AND MONITOR, VERBALLY UNDERSTANDING, ALL NEEDS ADDRESSED AT THIS TIME, NPO AT THIS ITME, EDUCATED PT TO REPORT S/S OF HYPOGLYCEMIC, VERBALLY UNDERSTANDING, CONTINUE TO MONITOR
[2019-02-08 10:17] VITALS: BP 135/87
--- NOTE | 2019-02-08 11:15 | NUR ---
BS CHECKED, PT REFUSED INSULIN D/T NPO STATUS THIS AM, PT ON CLEAR LIQUID DIET NOW BUT STILL REFUSED INSULIN AT THIS TIME SINCE PT AFRAIED BS WILL DROP LOW, CHARGE NURSE JUAN MADE AWARE, TRUCK DRIVER HELPER ABDULLAHI TOSCANO MADE AWARE, CONTINUE TO MONITOR
[2019-02-08 12:47] VITALS: BP 138/98
--- NOTE | 2019-02-08 13:31 | NUR ---
PT RESTING IN BED, IN NO ACUTE DISTRESS, TOLERATED LUNCH WELL W/ CLEAR LIQUID DIET, DENIED ABD PAIN/DISCOMFORT AT THIS TIME, SAFETY PROTOCOL FOLLOWED, VOID X 1, CONTINUE TO MONITOR
--- NOTE | 2019-02-08 14:42 | NUR ---
DC PAPER SIGNED AND KEPT IN CHART, IV REMOVED, IV CATH TIP PATENT, NO ACTIVE BLEEDING NOTED, EDUCATION R/T CONDITION, DIET AND MEDs GIVEN TO PT, VERBALLY UNDERSTANDING, NO FURTHER CONCERN NEEDED WHEN CLARIFIED, PT CALLED GRANDMOTHER TO P/U, PT DC HOME WITH FAMILY, PT IN STABLE CONDITION, PT DENIED PAIN/DISCOMFORT, PT MADE AWARE OF F/U W/ PCP 2-3 DAYS AFTER DC HOME AND PT SAID IT'S HIS RESPONSIBILITY TO F/U W/ PCP, PT MADE AWARE OF BEING ASSISTED TO LOBBY BY NURSING STAFF VIA WC, SKIN C/D/W, NAME BAND REMOVED.
== END 2019-02-08 15:24 | disposition home or self-care (01) | DRG 282 ==
LOC: ED 13:35 → MU 18:39 → EDBEDREQ 18:39 → MU 19:58
PROVIDERS: Emergency Medicine; ADMIT General Practice
DX: K85.90 Acute pancreatitis without necrosis or infection, unspecified (principal); J18.9 Pneumonia, unspecified organism; F32.9 Major depressive disorder, single episode, unspecified; E78.1 Pure hyperglyceridemia; Z83.3 Family history of diabetes mellitus; E66.9 Obesity, unspecified; E11.65 Type 2 diabetes mellitus with hyperglycemia; E87.1 Hypo-osmolality and hyponatremia; Z68.30 Body mass index [BMI] 30.0-30.9, adult
CPT/HCPCS: 82962; 84439; G0378; J0696; J1815; J2270; J2405; J7030; J7060; Q0092

== ENCOUNTER 2019-04-14 18:56 | Inpatient (IN) | payer OTHER ==
[~2019-04-14] VITALS: Ht 182.9 cm; Wt 114.8 kg
[2019-04-14 19:08] VITALS: Ht 182.9 cm; Wt 114.8 kg
[2019-04-14 19:37] LABS: RED CELL DISTRIBUTION WIDTH 14.3 % (11.5-14.5)
[2019-04-14 20:08] LABS: PLATELET COUNT 544 x10^3mcL (130-400)
[2019-04-14 20:32] LABS: CALCIUM 9.2 mg/dL (8.5-10.1); CARBON DIOXIDE 19.6 mmol/L (21-32); CHLORIDE SERUM 98 mmol/L (98-107); CREATININE SERUM 0.7 mg/dL (0.7-1.3); GFR1 > 60 mL/min; GLUCOSE SERUM 311 mg/dL (74-106); POTASSIUM SERUM 4.7 mmol/L (3.5-5.1); SODIUM SERUM 137 mmol/L (136-145)
[2019-04-14 20:37] LABS: ALBUMIN 3.7 g/dL (3.4-5.0); ALKALINE PHOSPHATASE 109 U/L (46-116); ALT/SGPT 81 U/L (16-63); AST/SGOT 47 U/L (15-37); BILIRUBIN TOTAL 0.4 mg/dL (0.20-1.00); LIPASE 1276 IU/L (73-393)
[2019-04-14 20:43] LABS: BAND NEUTROPHIL 2 % (0-10); MONOCYTE 4 % (0-7); SEGMENTED NEUTROPHILS 81 % (37-75); TOTAL PROTEIN, SERUM 8.3 g/dL (6.4-8.2); rbc morphology (normal/abnorm) ABNORMAL (NORMAL)
[2019-04-14 21:03] LABS: UA SPECIFIC GRAVITY 1.025 (1.005-1.035); microscopic required? YES; urine erythrocyte 1+ (NEGATIVE)
[2019-04-14 21:19] LABS: AMPHETAMINE QUAL UR NONE DETECTED (See below)
[2019-04-14 23:03] LABS: T3 TOTAL 1.41 ng/mL
[2019-04-14 23:05] LABS: CHOLESTEROL 303 mg/dL (<200); CHOLESTEROL/HDL RATIO 13.2; HDL CHOLESTEROL 23 mg/dL (40-60); TRIGLYCERIDES 3582 mg/dL (<150)
[2019-04-14 23:09] LABS: FREE T4 1.25 ng/dL (0.76-1.46)
[2019-04-14 23:13] VITALS: BP 153/103
[2019-04-15 05:52] VITALS: BP 126/86
[2019-04-15 06:35] LABS: BASOPHIL % 0.3 % (0-2); RED CELL DISTRIBUTION WIDTH 14.4 % (11.5-14.5)
[2019-04-15 06:50] LABS: PLATELET COUNT 404 x10^3mcL (130-400)
[2019-04-15 07:21] LABS: CALCIUM 7.4 mg/dL (8.5-10.1); CARBON DIOXIDE 17.7 mmol/L (21-32); CHLORIDE SERUM 100 mmol/L (98-107); CREATININE SERUM 0.5 mg/dL (0.7-1.3); GFR1 > 60 mL/min; GLUCOSE SERUM 241 mg/dL (74-106); POTASSIUM SERUM 3.8 mmol/L (3.5-5.1); SODIUM SERUM 135 mmol/L (136-145)
[2019-04-15 12:21] VITALS: BP 130/85
[2019-04-15 16:59] VITALS: BP 130/85
[2019-04-15 21:13] VITALS: BP 138/91
[2019-04-16 04:30] VITALS: BP 136/83
[2019-04-16 06:25] LABS: BASOPHIL % 0.3 % (0-2); PLATELET COUNT 364 x10^3mcL (130-400); RED CELL DISTRIBUTION WIDTH 14.3 % (11.5-14.5)
[2019-04-16 06:39] LABS: CALCIUM 8.4 mg/dL (8.5-10.1); CARBON DIOXIDE 25.2 mmol/L (21-32); CHLORIDE SERUM 101 mmol/L (98-107); CREATININE SERUM 0.5 mg/dL (0.7-1.3); GFR1 > 60 mL/min; GLUCOSE SERUM 191 mg/dL (74-106); POTASSIUM SERUM 3.6 mmol/L (3.5-5.1); SODIUM SERUM 137 mmol/L (136-145)
[2019-04-16 06:43] LABS: ALKALINE PHOSPHATASE 64 U/L (46-116); ALT/SGPT 53 U/L (16-63); AST/SGOT 21 U/L (15-37); BILIRUBIN DIRECT 0.07 mg/dL (0.0-0.2); BILIRUBIN TOTAL 0.4 mg/dL (0.20-1.00); LIPASE 473 IU/L (73-393); MAGNESIUM 1.7 mg/dL (1.8-2.4); PHOSPHOROUS 2.8 mg/dL (2.5-4.9); TOTAL PROTEIN, SERUM 6.8 g/dL (6.4-8.2)
[2019-04-16 06:44] LABS: ALBUMIN 2.8 g/dL (3.4-5.0)
[2019-04-16 08:07] VITALS: BP 134/95
[2019-04-16 11:39] VITALS: BP 141/99
[2019-04-16 13:02] VITALS: BP 141/99
[2019-04-16] MEDS ORDERED: PAN PO ×2 (13:43)
== END 2019-04-16 14:06 | disposition home or self-care (01) | DRG 282 ==
LOC: ED 18:56 → MU 22:15
PROVIDERS: Emergency Medicine; Specialist; ADMIT Family Medicine
DX: K85.90 Acute pancreatitis without necrosis or infection, unspecified (principal); E11.65 Type 2 diabetes mellitus with hyperglycemia; E66.9 Obesity, unspecified; R74.0 Nonspecific elevation of levels of transaminase and lactic acid dehydrogenase [LDH]; E78.1 Pure hyperglyceridemia; F32.9 Major depressive disorder, single episode, unspecified; Z68.34 Body mass index [BMI] 34.0-34.9, adult; Z79.84 Long term (current) use of oral hypoglycemic drugs; Z91.14 Patient's other noncompliance with medication regimen; Z90.89 Acquired absence of other organs; Z83.3 Family history of diabetes mellitus
CPT/HCPCS: 82962; 84439; G0378; G0480; J2270; J2405; J3010; J7030; J7120; Q0092

== ENCOUNTER 2019-09-22 16:51 | Inpatient (IN) | payer OTHER ==
[~2019-09-22] VITALS: Ht 198.1 cm; Wt 113.4 kg
[2019-09-22 16:53] VITALS: Ht 198.1 cm; Wt 113.4 kg
[2019-09-22 18:12] LABS: PLATELET COUNT 396 x10^3mcL (130-400); RED CELL DISTRIBUTION WIDTH 14.5 % (11.5-14.5)
[2019-09-22 18:36] LABS: CALCIUM 8.7 mg/dL (8.5-10.1); CARBON DIOXIDE 21.4 mmol/L (21-32); CHLORIDE SERUM 98 mmol/L (98-107); CREATININE SERUM 0.7 mg/dL (0.7-1.3); GFR1 > 60 mL/min; GLUCOSE SERUM 315 mg/dL (74-106); POTASSIUM SERUM 3.5 mmol/L (3.5-5.1); SODIUM SERUM 136 mmol/L (136-145)
[2019-09-22 18:46] LABS: BAND NEUTROPHIL 1 % (0-10); MONOCYTE 5 % (0-7); SEGMENTED NEUTROPHILS 79 % (37-75)
[2019-09-22 18:48] LABS: rbc morphology (normal/abnorm) ABNORMAL (NORMAL)
[2019-09-22 18:49] LABS: PLATELET MORPHOLOGY PLT CLUMPS SEEN
[2019-09-22 18:50] LABS: ALBUMIN 3.7 g/dL (3.4-5.0); ALKALINE PHOSPHATASE 93 U/L (46-116); ALT/SGPT 90 U/L (16-63); AST/SGOT 35 U/L (15-37); TOTAL PROTEIN, SERUM 7.5 g/dL (6.4-8.2)
[2019-09-22 18:58] LABS: LIPASE 1692 IU/L (73-393)
[2019-09-22 20:34] VITALS: BP 153/111
[2019-09-22 20:57] LABS: HDL CHOLESTEROL 36 mg/dL (40-60); MAGNESIUM 1.6 mg/dL (1.8-2.4); PHOSPHOROUS 2.9 mg/dL (2.5-4.9)
[2019-09-22 21:00] LABS: FREE T4 1.18 ng/dL (0.76-1.46); T4(THYROXINE) 9.5 ug/dL (4.7-13.3)
[2019-09-22 21:14] LABS: AMYLASE 148 U/L (25-115)
[2019-09-22 21:15] LABS: CHOLESTEROL/HDL RATIO 11.5; TRIGLYCERIDES 6193 mg/dL (<150)
[2019-09-22 21:28] LABS: CHOLESTEROL 414 mg/dL (<200); T3 TOTAL 1.48 ng/mL
[2019-09-22 22:45] VITALS: BP 135/93
[2019-09-23 00:27] LABS: UA SPECIFIC GRAVITY >=1.030 (1.005-1.035); microscopic required? YES; urine erythrocyte 1+ (NEGATIVE)
[2019-09-23 01:02] LABS: AMPHETAMINE QUAL UR NONE DETECTED (See below)
[2019-09-23 05:58] VITALS: BP 147/94
[2019-09-23 09:02] VITALS: BP 129/84
[2019-09-23 10:27] LABS: CALCIUM 6.4 mg/dL (8.5-10.1); CARBON DIOXIDE 14.3 mmol/L (21-32); CHLORIDE SERUM 99 mmol/L (98-107); GFR1 > 60 mL/min; GLUCOSE SERUM 381 mg/dL (74-106); LACTIC DEHYDROGENASE (LDH) 427 U/L (100-190); MAGNESIUM 1.4 mg/dL (1.8-2.4); PHOSPHOROUS 2.9 mg/dL (2.5-4.9); POTASSIUM SERUM 4.9 mmol/L (3.5-5.1)
[2019-09-23 10:32] LABS: SODIUM SERUM 135 mmol/L (136-145)
[2019-09-23 11:26] LABS: BAND NEUTROPHIL 4 % (0-10); MONOCYTE 5 % (0-7); SEGMENTED NEUTROPHILS 69 % (37-75); rbc morphology (normal/abnorm) ABNORMAL (NORMAL)
[2019-09-23 12:10] LABS: PLATELET COUNT 639 x10^3mcL (130-400)
[2019-09-23 12:39] VITALS: BP 129/89
[2019-09-23 13:05] LABS: AMYLASE 394 U/L (25-115); LIPASE 4603 IU/L (73-393)
[2019-09-23 16:51] VITALS: BP 133/87
[2019-09-23 20:59] VITALS: BP 145/97
[2019-09-24 06:17] VITALS: BP 124/81
[2019-09-24 08:05] VITALS: BP 124/83
[2019-09-24 08:30] LABS: PLATELET COUNT 312 x10^3mcL (130-400)
[2019-09-24 08:31] LABS: AMYLASE 133 U/L (25-115); CALCIUM 6.3 mg/dL (8.5-10.1); CARBON DIOXIDE 24.6 mmol/L (21-32); CHLORIDE SERUM 97 mmol/L (98-107); CREATININE SERUM 0.8 mg/dL (0.7-1.3); GFR1 > 60 mL/min; GLUCOSE SERUM 224 mg/dL (74-106); MAGNESIUM 2.1 mg/dL (1.8-2.4); PHOSPHOROUS 2.3 mg/dL (2.5-4.9); POTASSIUM SERUM 4.2 mmol/L (3.5-5.1); RED CELL DISTRIBUTION WIDTH 15.7 % (11.5-14.5); SODIUM SERUM 133 mmol/L (136-145)
[2019-09-24 11:14] LABS: BAND NEUTROPHIL 10 % (0-10); BASOPHIL 0 % (0-2); MONOCYTE 5 % (0-7); SEGMENTED NEUTROPHILS 71 % (37-75)
[2019-09-24 11:15] LABS: rbc morphology (normal/abnorm) ABNORMAL (NORMAL)
[2019-09-24 12:00] VITALS: BP 115/77
[2019-09-24 17:00] VITALS: BP 11/59
[2019-09-24 21:39] VITALS: BP 116/75
[2019-09-25 05:15] VITALS: BP 109/75
[2019-09-25 09:00] VITALS: BP 120/85
[2019-09-25 10:46] LABS: BASOPHIL % 0.1 % (0-2); PLATELET COUNT 316 x10^3mcL (130-400)
[2019-09-25 10:47] LABS: CALCIUM 7.6 mg/dL (8.5-10.1); CARBON DIOXIDE 18.4 mmol/L (21-32); CHLORIDE SERUM 99 mmol/L (98-107); CHOLESTEROL 191 mg/dL (<200); CREATININE SERUM 0.6 mg/dL (0.7-1.3); GFR1 > 60 mL/min; GLUCOSE SERUM 229 mg/dL (74-106); LIPASE 702 IU/L (73-393); PHOSPHOROUS 1.2 mg/dL (2.5-4.9); POTASSIUM SERUM 3.8 mmol/L (3.5-5.1); RED CELL DISTRIBUTION WIDTH 16.2 % (11.5-14.5); SODIUM SERUM 132 mmol/L (136-145)
[2019-09-25 10:49] LABS: CHOLESTEROL/HDL RATIO 13.6; HDL CHOLESTEROL 14 mg/dL (40-60); TRIGLYCERIDES 354 mg/dL (<150)
[2019-09-25 12:30] VITALS: BP 123/89
[2019-09-25 17:55] VITALS: BP 129/78
[2019-09-25 21:05] VITALS: BP 133/89
[2019-09-26 06:03] VITALS: BP 134/82
[2019-09-26 08:15] VITALS: BP 140/94
[2019-09-26 09:42] LABS: CALCIUM 7.7 mg/dL (8.5-10.1); CARBON DIOXIDE 23.7 mmol/L (21-32); CHLORIDE SERUM 101 mmol/L (98-107); CREATININE SERUM 0.7 mg/dL (0.7-1.3); GLUCOSE SERUM 219 mg/dL (74-106); LIPASE 1131 IU/L (73-393); MAGNESIUM 1.6 mg/dL (1.8-2.4); PHOSPHOROUS 1.9 mg/dL (2.5-4.9); POTASSIUM SERUM 3.3 mmol/L (3.5-5.1); SODIUM SERUM 136 mmol/L (136-145)
[2019-09-26 09:44] LABS: GFR1 > 602 mL/min
[2019-09-26 09:52] LABS: BASOPHIL % 0.4 % (0-2)
[2019-09-26 10:19] LABS: PLATELET COUNT 453 x10^3mcL (130-400); RED CELL DISTRIBUTION WIDTH 16.3 % (11.5-14.5)
[2019-09-26] MEDS ORDERED: GEMFIBROZIL600 MG PO (11:17)
[2019-09-26] MEDS ORDERED: LIPI10 PO (11:18)
[2019-09-26] MEDS ORDERED: NOR7T PO (11:26)
[2019-09-26 13:26] VITALS: BP 140/94
== END 2019-09-26 14:42 | disposition home or self-care (01) | DRG 282 ==
LOC: ED 16:51 → MU 19:36 → DU 19:36 → MU 20:30 → DU 22:27 → MU 09-25 10:59
PROVIDERS: Emergency Medicine; ADMIT Internal Medicine; ATTEND Internal Medicine
DX: K85.90 Acute pancreatitis without necrosis or infection, unspecified (principal); E11.65 Type 2 diabetes mellitus with hyperglycemia; I10 Essential (primary) hypertension; Z83.3 Family history of diabetes mellitus; Z20.828 Contact with and (suspected) exposure to other viral communicable diseases; R00.0 Tachycardia, unspecified; E83.42 Hypomagnesemia
CPT/HCPCS: 82962; 83880; 84439; G0378; G0480; J1650; J1815; J1885; J2270; J2405; J2765; J3010; J3475; J3490; J7030; Q0092; U0003-CS